=== PATIENT | female | born 1975 | race Caucasian/White ===

== ENCOUNTER 2017-07-17 18:55 | Emergency (ER) | payer MEDICAID, OTHER ==
[~2017-07-17] VITALS: Ht 154.9 cm; Wt 81.8 kg
[~2017-07-17 18:55] MED LIST: VIST50 PO
[2017-07-17 22:43] VITALS: BP 144/98
== END 2017-07-17 22:47 | disposition home or self-care (01) ==
LOC: EMS 18:56
DX: F41.9 Anxiety disorder, unspecified (principal); R20.0 Anesthesia of skin
CPT/HCPCS: 99281

== ENCOUNTER 2018-03-13 03:47 | Emergency (ER) | payer OTHER ==
[~2018-03-13] VITALS: Ht 160 cm; Wt 81.8 kg
[~2018-03-13 03:47] MED LIST changes: +HYDR50CA10 PO; -VIST50 PO
[2018-03-13] MEDS ORDERED: KETOROLAC TROMETHAMINE 30 MG/ML VIAL IM ONE (04:30)
[2018-03-13 04:44] LABS: EOSINOPHILS % (AUTO) 2.3 % (1.0-6.0); HEMATOCRIT 43.2 % (36-46); LYMPHOCYTES # (AUTO) 2.6 K/uL (1.0-4.8); LYMPHOCYTES % (AUTO) 32.1 % (22.0-44.0); MEAN CORPUSCULAR HEMOGLOBIN 29.8 pg (26.0-34.0); MEAN CORPUSCULAR HGB CONC 34.7 G/dL (31.0-37.0); MEAN CORPUSCULAR VOLUME 86 fL (80-100); MONOCYTES # (AUTO) 0.6 K/uL (0.1-1.0); MONOCYTES % (AUTO) 7.1 % (2.0-9.0); NEUTROPHILS # (AUTO) 4.6 K/uL (1.8-7.7); NEUTROPHILS % (AUTO) 57.5 % (40.0-70.0); PLATELET COUNT (AUTO) 259 K/uL (150-450); RED BLOOD CELL COUNT(AUTO) 5.03 MIL/uL (4.00-5.20); RED CELL DISTRIBUTION WIDTH 12.8 % (11.5-14.5)
[2018-03-13 04:55] LABS: ANION GAP 10 mmol/L (8-16); CARBON DIOXIDE 25 mmol/L (22-29); CHLORIDE 104 mmol/L (98-107); CREATININE 0.66 mg/dL (0.60-1.30); GLOMERULAR FILTR. RATE CALC > 60 mL/min (>60); GLUCOSE,RANDOM 131 mg/dL (70-110); POTASSIUM 4.1 mmol/L (3.5-5.1); SODIUM SERUM 139 mmol/L (136-145); UREA NITROGEN, BLOOD 10 mg/dL (7-18)
[2018-03-13 04:59] LABS: ALANINE AMINOTRANSFERASE 56 U/L (12-78); ALBUMIN 3.8 g/dL (3.4-5.0); ALKALINE PHOSPHATASE 62 U/L (46-116); ASPARTATE AMINOTRANSFERASE 30 U/L (15-37); BILIRUBIN,TOTAL 0.5 mg/dL (0.1-1.0); TOTAL PROTEIN, SERUM 7.3 g/dL (6.4-8.2)
[2018-03-13 05:07] LABS: APPEARANCE,URINE CLEAR (CLEAR); BILIRUBIN,URINE NEGATIVE (NEGATIVE); GLUCOSE, URINE (UA) NEGATIVE (NEGATIVE); KETONES,URINE NEGATIVE (NEGATIVE); LEUKOCYTE ESTERASE ,URINE NEGATIVE (NEGATIVE); NITRATE,URINE NEGATIVE (NEGATIVE); OCCULT BLOOD,URINE NEGATIVE (NEGATIVE); PROTEIN,URINE NEGATIVE (NEGATIVE); UROBILINOGEN,URINE 0.2 mg/dL (<=1.0)
[2018-03-13 05:30] VITALS: BP 142/92
== END 2018-03-13 05:49 | disposition home or self-care (01) ==
LOC: EMS 03:48
DX: R10.32 Left lower quadrant pain (principal); F41.9 Anxiety disorder, unspecified
CPT/HCPCS: 36415; 80053; 81003; 84703; 85025; 96372; 99284; J1885

== ENCOUNTER 2018-03-18 22:38 | Emergency (ER) | payer OTHER | END 2018-03-18 23:04 | disposition left against medical advice (07) | LOC: EMS 22:40 | DX: R42 Dizziness and giddiness (principal); Z53.21 Procedure and treatment not carried out due to patient leaving prior to being seen by health care provider ==

== ENCOUNTER 2018-03-25 10:27 | Emergency (ER) | payer OTHER ==
[~2018-03-25] VITALS: Ht 157.5 cm; Wt 85.0 kg
[2018-03-25] MEDS ORDERED: DiphenhydrAMINE HCL 50 MG/ML VIAL IVP ONE (11:15)
[2018-03-25] MEDS ORDERED: METOCLOPRAMIDE HCL 5 MG/ML 2 ML VIAL IVP ONE (11:15)
[2018-03-25] MEDS ORDERED: SODIUM CHLORIDE 0.9% 1,000 ML IV ONE (11:15)
[2018-03-25] MEDS ORDERED: KETOROLAC TROMETHAMINE 30 MG/ML VIAL IVP ONE (11:15)
[2018-03-25 11:46] LABS: BASOPHILS % (AUTO) 0.9 % (0.0-2.0); EOSINOPHILS % (AUTO) 1.5 % (1.0-6.0); HEMATOCRIT 42.7 % (36-46); HEMOGLOBIN 14.7 g/dL (12.0-16.0); LYMPHOCYTES # (AUTO) 1.8 K/uL (1.0-4.8); LYMPHOCYTES % (AUTO) 28.9 % (22.0-44.0); MEAN CORPUSCULAR HEMOGLOBIN 29.9 pg (26.0-34.0); MEAN CORPUSCULAR HGB CONC 34.5 G/dL (31.0-37.0); MEAN CORPUSCULAR VOLUME 87 fL (80-100); MONOCYTES # (AUTO) 0.4 K/uL (0.1-1.0); MONOCYTES % (AUTO) 6.9 % (2.0-9.0); NEUTROPHILS # (AUTO) 3.8 K/uL (1.8-7.7); NEUTROPHILS % (AUTO) 61.8 % (40.0-70.0); PLATELET COUNT (AUTO) 244 K/uL (150-450); RED BLOOD CELL COUNT(AUTO) 4.93 MIL/uL (4.00-5.20); RED CELL DISTRIBUTION WIDTH 12.8 % (11.5-14.5)
[2018-03-25 11:59] LABS: ANION GAP 9 mmol/L (8-16); CALCIUM, TOTAL 9.2 mg/dL (8.8-10.5); CARBON DIOXIDE 27 mmol/L (22-29); CHLORIDE 105 mmol/L (98-107); CREATININE 0.77 mg/dL (0.60-1.30); GLOMERULAR FILTR. RATE CALC > 60 mL/min (>60); GLUCOSE,RANDOM 100 mg/dL (70-110); SODIUM SERUM 141 mmol/L (136-145); UREA NITROGEN, BLOOD 12 mg/dL (7-18)
[2018-03-25 13:20] VITALS: BP 110/69
== END 2018-03-25 13:21 | disposition home or self-care (01) ==
LOC: EMS 10:28
DX: R51 Headache (principal); R42 Dizziness and giddiness; F41.9 Anxiety disorder, unspecified; Z90.710 Acquired absence of both cervix and uterus
CPT/HCPCS: 36415; 70450; 80048; 84703; 85025; 96361; 96374; 96375; 99285; J1200; J1885; J2765; J7030

== ENCOUNTER 2019-01-10 09:16 | Emergency (ER) | payer OTHER ==
[~2019-01-10] VITALS: Ht 162.6 cm; Wt 72.7 kg
[2019-01-10 10:35] LABS: BASOPHILS % (AUTO) 0.9 % (0.0-2.0); EOSINOPHILS % (AUTO) 0.9 % (1.0-6.0); HEMATOCRIT 39.7 % (36-46); HEMOGLOBIN 13.4 g/dL (12.0-16.0); LYMPHOCYTES # (AUTO) 1.5 K/uL (1.0-4.8); LYMPHOCYTES % (AUTO) 19.5 % (22.0-44.0); MEAN CORPUSCULAR HEMOGLOBIN 29.3 pg (26.0-34.0); MEAN CORPUSCULAR HGB CONC 33.7 G/dL (31.0-37.0); MEAN CORPUSCULAR VOLUME 87 fL (80-100); MONOCYTES # (AUTO) 0.5 K/uL (0.1-1.0); MONOCYTES % (AUTO) 6.9 % (2.0-9.0); NEUTROPHILS # (AUTO) 5.5 K/uL (1.8-7.7); NEUTROPHILS % (AUTO) 71.8 % (40.0-70.0); PLATELET COUNT (AUTO) 264 K/uL (150-450); RED BLOOD CELL COUNT(AUTO) 4.56 MIL/uL (4.00-5.20); RED CELL DISTRIBUTION WIDTH 12.8 % (11.5-14.5)
[2019-01-10 10:43] LABS: ANION GAP 10 mmol/L (8-16); CALCIUM, TOTAL 8.8 mg/dL (8.8-10.5); CARBON DIOXIDE 25 mmol/L (22-29); CHLORIDE 105 mmol/L (98-107); CREATININE 0.64 mg/dL (0.60-1.30); GLOMERULAR FILTR. RATE CALC > 60 mL/min (>60); GLUCOSE,RANDOM 109 mg/dL (70-110); POTASSIUM 3.7 mmol/L (3.5-5.1); SODIUM SERUM 140 mmol/L (136-145); UREA NITROGEN, BLOOD 16 mg/dL (7-18)
[2019-01-10 10:49] LABS: ALANINE AMINOTRANSFERASE 21 U/L (12-78); ALBUMIN 3.8 g/dL (3.4-5.0); ALKALINE PHOSPHATASE 53 U/L (46-116); ASPARTATE AMINOTRANSFERASE 16 U/L (15-37); BILIRUBIN,TOTAL 0.6 mg/dL (0.1-1.0); LIPASE 256 U/L (73-393)
[2019-01-10 12:10] LABS: APPEARANCE,URINE CLOUDY (CLEAR); BILIRUBIN,URINE NEGATIVE (NEGATIVE); GLUCOSE, URINE (UA) NEGATIVE (NEGATIVE); KETONES,URINE NEGATIVE (NEGATIVE); LEUKOCYTE ESTERASE ,URINE NEGATIVE (NEGATIVE); NITRATE,URINE NEGATIVE (NEGATIVE); OCCULT BLOOD,URINE NEGATIVE (NEGATIVE); PH,URINE 7.5 (5.0-8.0); PROTEIN,URINE NEGATIVE (NEGATIVE)
[2019-01-10 12:20] LABS: BACTERIA,URINE Rare /HPF (None Seen); RBC,URINE None Seen /HPF (0-2); SQUAMOUS EPITHELIAL CELL,UR Few /LPF (None Seen); WBC,URINE 0-2 /HPF (0-5)
[2019-01-10 12:50] VITALS: BP 147/80
== END 2019-01-10 12:58 | disposition home or self-care (01) ==
LOC: EMS 09:18
DX: R10.30 Lower abdominal pain, unspecified (principal); F41.9 Anxiety disorder, unspecified

== ENCOUNTER 2021-07-10 10:49 | Emergency (ER) | payer MEDICAID, OTHER ==
[~2021-07-10] VITALS: Ht 154.9 cm; Wt 79.1 kg
[2021-07-10] MEDS ORDERED: SODIUM CHLORIDE 0.9% 1,000 ML IV ONE (13:15)
[2021-07-10] MEDS ORDERED: DiphenhydrAMINE HCL 50 MG/ML VIAL IVP ONE (13:15)
[2021-07-10] MEDS ORDERED: KETOROLAC TROMETHAMINE 30 MG/ML VIAL IVP ONE (13:15)
[2021-07-10] MEDS ORDERED: METOCLOPRAMIDE HCL 5 MG/ML 2 ML VIAL IVP ONE (13:15)
[2021-07-10 13:30] LABS: BASOPHILS % (AUTO) 1.2 % (0.0-2.0); HEMATOCRIT 41.9 % (36-46); HEMOGLOBIN 14.6 g/dL (12.0-16.0); LYMPHOCYTES # (AUTO) 2.4 K/uL (1.0-4.8); LYMPHOCYTES % (AUTO) 38.5 % (22.0-44.0); MEAN CORPUSCULAR HEMOGLOBIN 29.5 pg (26.0-34.0); MEAN CORPUSCULAR HGB CONC 34.9 G/dL (31.0-37.0); MEAN CORPUSCULAR VOLUME 85 fL (80-100); MONOCYTES # (AUTO) 0.7 K/uL (0.1-1.0); MONOCYTES % (AUTO) 10.6 % (2.0-9.0); NEUTROPHILS % (AUTO) 46.7 % (40.0-70.0); PLATELET COUNT (AUTO) 275 K/uL (150-450); RED BLOOD CELL COUNT(AUTO) 4.95 MIL/uL (4.00-5.20); RED CELL DISTRIBUTION WIDTH 13.3 % (11.5-14.5)
[2021-07-10 13:40] LABS: ANION GAP 4 mmol/L (8-16); CARBON DIOXIDE 30 mmol/L (22-29); CHLORIDE 105 mmol/L (98-107); CREATININE 0.56 mg/dL (0.60-1.30); GLUCOSE,RANDOM 94 mg/dL (70-110); SODIUM SERUM 139 mmol/L (136-145); UREA NITROGEN, BLOOD 17 mg/dL (7-18)
[2021-07-10 13:41] LABS: GLOMERULAR FILTR. RATE CALC > 60 mL/min (>60)
[2021-07-10 13:42] VITALS: BP 140/80
== END 2021-07-10 14:58 | disposition home or self-care (01) ==
LOC: EMS 11:07
DX: R51.9 Headache, unspecified (principal); F41.9 Anxiety disorder, unspecified
CPT/HCPCS: 36415; 80048; 85025; 96361; 96374; 96375; 99284; J1200; J1885; J2765; J7030

== ENCOUNTER 2022-06-03 12:16 | Emergency (ER) | payer MEDICAID, OTHER ==
[~2022-06-03] VITALS: Ht 162.6 cm; Wt 86.4 kg
[2022-06-03 12:25] VITALS: BP 139/79
[2022-06-03] MEDS ORDERED: BACLOFEN 10 MG TABLET PO ONE (14:15)
[2022-06-03] MEDS ORDERED: LIDOCAINE 5% TRANSDERMAL PATCH TD ONE (14:15)
[2022-06-03] MEDS ORDERED: BACL10TA PO (15:53)
[2022-06-03] MEDS ORDERED: LIDO700A15 TP (15:54)
[2022-06-03] MEDS ORDERED: IBUP-2070 PO (15:54)
== END 2022-06-03 16:07 | disposition home or self-care (01) ==
LOC: EMS 12:17
DX: M54.50 Low back pain, unspecified (principal); E11.9 Type 2 diabetes mellitus without complications; Z90.710 Acquired absence of both cervix and uterus
CPT/HCPCS: 72100; 82962; 99283

== ENCOUNTER 2022-06-25 12:39 | Emergency (ER) | payer OTHER ==
[~2022-06-25] VITALS: Ht 167.6 cm; Wt 90.9 kg
[~2022-06-25 12:39] MED LIST changes: +BACL10TA PO; -HYDR50CA10 PO; +IBUP-2070 PO; +LIDO700A15 TP
[2022-06-25] MEDS ORDERED: SITA25 PO (12:44)
[2022-06-25] MEDS ORDERED: SITA50 PO (13:56)
[2022-06-25] MEDS ORDERED: GABA-529 PO (13:56)
[2022-06-25] MEDS ORDERED: MELO-106 PO (13:56)
[2022-06-25] MEDS ORDERED: DEXAMETHASONE SOD PHOS 4 MG/ML 5 ML VIAL IM ONE (14:45)
[2022-06-25] MEDS ORDERED: KETOROLAC TROMETHAMINE 30 MG/ML VIAL IM ONE (14:45)
[2022-06-25 15:36] VITALS: BP 148/80
== END 2022-06-25 15:37 | disposition home or self-care (01) ==
LOC: EMS 12:54
DX: M54.32 Sciatica, left side (principal); E11.9 Type 2 diabetes mellitus without complications; Z90.710 Acquired absence of both cervix and uterus
CPT/HCPCS: 99284; 82962; 96372; J1100; J1885

== ENCOUNTER 2022-07-24 00:20 | Emergency (ER) | payer OTHER ==
[~2022-07-24] VITALS: Ht 157.5 cm; Wt 81.8 kg
[~2022-07-24 00:20] MED LIST changes: +GABA-529 PO; +IBUP-1492 PO; -IBUP-2070 PO; +MELO-106 PO; +SITA50 PO
[2022-07-24] MEDS ORDERED: KETOROLAC TROMETHAMINE 60 MG/2 ML VIAL IM ONE (01:30)
[2022-07-24] MEDS ORDERED: LIDOCAINE 5% TRANSDERMAL PATCH TD ONE (01:30)
[2022-07-24] MEDS ORDERED: DEXAMETHASONE SOD PHOS 4 MG/ML 5 ML VIAL IM ONE (01:30)
[2022-07-24] MEDS ORDERED: HYDR-4723 PO (01:48)
[2022-07-24] MEDS ORDERED: KETO10TA2 PO (01:48)
[2022-07-24] MEDS ORDERED: LIDO700A15 TP (01:48)
[2022-07-24] MEDS ORDERED: METH-812 PO (01:48)
[2022-07-24 02:13] VITALS: BP 140/95
== END 2022-07-24 02:05 | disposition home or self-care (01) ==
LOC: EMS 00:22
DX: G89.29 Other chronic pain (principal); M54.42 Lumbago with sciatica, left side; E11.9 Type 2 diabetes mellitus without complications; Z90.710 Acquired absence of both cervix and uterus
CPT/HCPCS: 99284; 82962; 96372; J1100; J1885

== ENCOUNTER 2022-10-12 16:58 | Emergency (ER) | payer OTHER ==
[~2022-10-12] VITALS: Ht 154.9 cm; Wt 82.0 kg
[~2022-10-12 16:58] MED LIST changes: +HYDR-4723 PO; +KETO10TA2 PO; +METH-812 PO
[2022-10-12] MEDS ORDERED: ACET-2080 PO (17:07)
[2022-10-12] MEDS ORDERED: IBUPROFEN 600 MG TABLET PO ONE (18:00)
[2022-10-12] MEDS ORDERED: ACETAMINOPHEN 500 MG TABLET PO ONE (18:00)
[2022-10-12 18:02] LABS: BASOPHILS % (AUTO) 0.9 % (0.0-2.0); EOSINOPHILS % (AUTO) 2.8 % (1.0-6.0); HEMATOCRIT 43.6 % (36-46); HEMOGLOBIN 14.6 g/dL (12.0-16.0); LYMPHOCYTES # (AUTO) 2.7 K/uL (1.0-4.8); LYMPHOCYTES % (AUTO) 38.1 % (22.0-44.0); MEAN CORPUSCULAR HEMOGLOBIN 29.2 pg (26.0-34.0); MEAN CORPUSCULAR HGB CONC 33.5 G/dL (31.0-37.0); MEAN CORPUSCULAR VOLUME 87 fL (80-100); MONOCYTES # (AUTO) 0.5 K/uL (0.1-1.0); MONOCYTES % (AUTO) 7.1 % (2.0-9.0); NEUTROPHILS # (AUTO) 3.7 K/uL (1.8-7.7); NEUTROPHILS % (AUTO) 51.1 % (40.0-70.0); PLATELET COUNT (AUTO) 250 K/uL (150-450); RED CELL DISTRIBUTION WIDTH 12.5 % (11.5-14.5)
[2022-10-12 18:18] LABS: ANION GAP 6 mmol/L (8-16); CALCIUM, TOTAL 9.6 mg/dL (8.8-10.5); CARBON DIOXIDE 27 mmol/L (22-29); CHLORIDE 103 mmol/L (98-107); CREATININE 0.83 mg/dL (0.60-1.30); GLOMERULAR FILTR. RATE CALC > 60 mL/min (>60); GLUCOSE,RANDOM 109 mg/dL (70-110); POTASSIUM 3.6 mmol/L (3.5-5.1); SODIUM SERUM 136 mmol/L (136-145); UREA NITROGEN, BLOOD 16 mg/dL (7-18)
[2022-10-12 18:25] LABS: ALANINE AMINOTRANSFERASE 36 U/L (12-78); ALBUMIN 4.4 g/dL (3.4-5.0); ALKALINE PHOSPHATASE 66 U/L (46-116); ASPARTATE AMINOTRANSFERASE 28 U/L (15-37); BILIRUBIN,TOTAL 0.6 mg/dL (0.1-1.0); CREATINE KINASE, TOTAL ONLY 130 U/L (26-192); TOTAL PROTEIN, SERUM 7.9 g/dL (6.4-8.2)
[2022-10-12 18:31] LABS: B-TYPE NATRIURETIC PEPTIDE < 5 pg/mL (0-100)
[2022-10-12 19:37] VITALS: BP 146/90
== END 2022-10-12 21:02 | disposition home or self-care (01) ==
LOC: EMS 17:07
DX: R51.9 Headache, unspecified (principal); E11.9 Type 2 diabetes mellitus without complications; Z90.710 Acquired absence of both cervix and uterus
CPT/HCPCS: 70450; 80053; 82550; 82962; 83880; 84484; 84703; 85025; 93005; 99285

== ENCOUNTER 2022-12-05 22:29 | Emergency (ER) | payer OTHER ==
[~2022-12-05] VITALS: Ht 154.9 cm; Wt 95.0 kg
[~2022-12-05 22:29] MED LIST changes: +ACET-2080 PO; -BACL10TA PO; -GABA-529 PO; -HYDR-4723 PO; -IBUP-1492 PO; -KETO10TA2 PO; -LIDO700A15 TP; -MELO-106 PO; -METH-812 PO
[2022-12-05] MEDS ORDERED: ONDANSETRON HCL 4 MG/2 ML VIAL IVP ONE (23:00)
[2022-12-05] MEDS ORDERED: SODIUM CHLORIDE 0.9% 1,000 ML IV ONE (23:00)
[2022-12-05 23:11] LABS: GLUCOMETER DEV NAME(LOC) ERT.5; GLUCOSE,POINT OF CARE 165 MG/DL (70-110)
[2022-12-05 23:26] LABS: BASOPHILS % (AUTO) 0.7 % (0.0-2.0); HEMATOCRIT 38.3 % (36-46); HEMOGLOBIN 12.9 g/dL (12.0-16.0); LYMPHOCYTES # (AUTO) 2.9 K/uL (1.0-4.8); LYMPHOCYTES % (AUTO) 33.6 % (22.0-44.0); MEAN CORPUSCULAR HEMOGLOBIN 28.9 pg (26.0-34.0); MEAN CORPUSCULAR HGB CONC 33.6 G/dL (31.0-37.0); MEAN CORPUSCULAR VOLUME 86 fL (80-100); MONOCYTES # (AUTO) 0.8 K/uL (0.1-1.0); MONOCYTES % (AUTO) 8.8 % (2.0-9.0); NEUTROPHILS # (AUTO) 4.8 K/uL (1.8-7.7); NEUTROPHILS % (AUTO) 54.9 % (40.0-70.0); PLATELET COUNT (AUTO) 233 K/uL (150-450); RED BLOOD CELL COUNT(AUTO) 4.45 MIL/uL (4.00-5.20); RED CELL DISTRIBUTION WIDTH 12.6 % (11.5-14.5)
[2022-12-05 23:31] LABS: ANION GAP 5 mmol/L (8-16); CALCIUM, TOTAL 8.9 mg/dL (8.8-10.5); CARBON DIOXIDE 30 mmol/L (22-29); CHLORIDE 102 mmol/L (98-107); CREATININE 0.84 mg/dL (0.60-1.30); GLOMERULAR FILTR. RATE CALC > 60 mL/min (>60); GLUCOSE,RANDOM 166 mg/dL (70-110); POTASSIUM 4.3 mmol/L (3.5-5.1); SODIUM SERUM 137 mmol/L (136-145); UREA NITROGEN, BLOOD 21 mg/dL (7-18)
[2022-12-05 23:38] LABS: ALANINE AMINOTRANSFERASE 25 U/L (12-78); ALBUMIN 3.6 g/dL (3.4-5.0); ALKALINE PHOSPHATASE 58 U/L (46-116); ASPARTATE AMINOTRANSFERASE 17 U/L (15-37); BILIRUBIN,TOTAL 0.6 mg/dL (0.1-1.0); TOTAL PROTEIN, SERUM 6.9 g/dL (6.4-8.2)
[2022-12-06] MEDS ORDERED: ONDA-104 PO (00:57)
[2022-12-06] MEDS ORDERED: IBUP-1554 PO (00:57)
[2022-12-06 01:00] VITALS: BP 132/71
== END 2022-12-06 01:00 | disposition home or self-care (01) ==
LOC: EMS 22:32
DX: R51.9 Headache, unspecified (principal); E11.9 Type 2 diabetes mellitus without complications; Z90.710 Acquired absence of both cervix and uterus
CPT/HCPCS: 99283; 80053; 82962; 84703; 85025; 36415; 96374; 96361; J2405; J7030

== ENCOUNTER 2023-02-28 11:53 | Emergency (ER) | payer OTHER ==
[~2023-02-28] VITALS: Ht 157.5 cm; Wt 89.0 kg
[2023-02-28 11:53] VITALS: TEMP 98.3
[~2023-02-28 11:53] MED LIST changes: +IBUP-1554 PO; +ONDA-104 PO
[2023-02-28] MEDS ORDERED: METO-558 PO (11:57)
[2023-02-28 13:03] LABS: BASOPHILS % (AUTO) 0.5 % (0.0-2.0); EOSINOPHILS % (AUTO) 1.7 % (1.0-6.0); HEMOGLOBIN 14.4 g/dL (12.0-16.0); LYMPHOCYTES # (AUTO) 1.8 K/uL (1.0-4.8); LYMPHOCYTES % (AUTO) 37.6 % (22.0-44.0); MEAN CORPUSCULAR HEMOGLOBIN 29.8 pg (26.0-34.0); MEAN CORPUSCULAR HGB CONC 35.2 G/dL (31.0-37.0); MEAN CORPUSCULAR VOLUME 85 fL (80-100); MONOCYTES # (AUTO) 0.4 K/uL (0.1-1.0); MONOCYTES % (AUTO) 8.6 % (2.0-9.0); NEUTROPHILS # (AUTO) 2.5 K/uL (1.8-7.7); NEUTROPHILS % (AUTO) 51.6 % (40.0-70.0); PLATELET COUNT (AUTO) 222 K/uL (150-450); RED BLOOD CELL COUNT(AUTO) 4.85 MIL/uL (4.00-5.20); RED CELL DISTRIBUTION WIDTH 12.7 % (11.5-14.5)
[2023-02-28 13:17] LABS: ANION GAP 10 mmol/L (8-16); CALCIUM, TOTAL 8.9 mg/dL (8.8-10.5); CARBON DIOXIDE 26 mmol/L (22-29); CHLORIDE 102 mmol/L (98-107); CREATININE 0.65 mg/dL (0.60-1.30); GLOMERULAR FILTR. RATE CALC > 60 mL/min (>60); GLUCOSE,RANDOM 235 mg/dL (70-110); POTASSIUM 4.2 mmol/L (3.5-5.1); SODIUM SERUM 138 mmol/L (136-145)
[2023-02-28 13:22] LABS: ALANINE AMINOTRANSFERASE 49 U/L (12-78); ALBUMIN 3.7 g/dL (3.4-5.0); ALKALINE PHOSPHATASE 60 U/L (46-116); ASPARTATE AMINOTRANSFERASE 37 U/L (15-37); BILIRUBIN,TOTAL 0.6 mg/dL (0.1-1.0); TOTAL PROTEIN, SERUM 7.5 g/dL (6.4-8.2)
[2023-02-28] MEDS ORDERED: HYDROCODONE/ACETAMINOPHEN 5-325 MG TABLET PO ONE (15:15)
[2023-02-28] MEDS ORDERED: KETOROLAC TROMETHAMINE 60 MG/2 ML VIAL IM ONE (15:15)
[2023-02-28] MEDS ORDERED: BACLOFEN 10 MG TABLET PO ONE (15:15)
[2023-02-28 15:49] VITALS: BP 149/84; PULSE 82; RESP 16
[2023-02-28] MEDS ORDERED: ACET-66 PO (15:54)
[2023-02-28] MEDS ORDERED: IBUP-1554 PO (15:54)
== END 2023-02-28 16:03 | disposition home or self-care (01) ==
LOC: EMS 11:55
DX: G44.209 Tension-type headache, unspecified, not intractable (principal); E11.65 Type 2 diabetes mellitus with hyperglycemia; I10 Essential (primary) hypertension; Z90.710 Acquired absence of both cervix and uterus
CPT/HCPCS: 99284; 80053; 82962; 84484; 84703; 85025; 36415; 93005; 96372; J1885

== ENCOUNTER 2025-07-05 20:12 | Emergency (ER) | payer OTHER ==
[~2025-07-05] VITALS: Ht 167.6 cm; Wt 69.5 kg
[~2025-07-05 20:12] MED LIST changes: -ACET-2080 PO; +ACET-66 PO; +METO-325 PO; -ONDA-104 PO
[2025-07-05 20:59] LABS: APPEARANCE,URINE CLEAR (CLEAR); GLUCOSE, URINE (UA) >=1000 mg/dL (NEGATIVE); LEUKOCYTE ESTERASE ,URINE NEGATIVE (NEGATIVE); NITRATE,URINE NEGATIVE (NEGATIVE); OCCULT BLOOD,URINE NEGATIVE (NEGATIVE); SPECIFIC GRAVITIY, URINE 1.048 (1.003-1.030)
[2025-07-05 21:08] LABS: PLATELET COUNT (AUTO) 227 K/uL (150-450); RED BLOOD CELL COUNT(AUTO) 5.78 MIL/uL (4.00-5.20); RED CELL DISTRIBUTION WIDTH 12.7 % (11.5-14.5); WHITE BLOOD COUNT (AUTO) 18.6 K/uL (4.5-11.0)
[2025-07-05 21:14] LABS: SQUAMOUS EPITHELIAL CELL,UR Few /LPF (None Seen)
[2025-07-05 21:18] LABS: CALCIUM, TOTAL 9.4 mg/dL (8.8-10.5); CREATININE 0.67 mg/dL (0.60-1.30); GLOMERULAR FILTR. RATE CALC > 60 mL/min (>60); GLUCOSE,RANDOM 226 mg/dL (70-110); SODIUM SERUM 139 mmol/L (136-145); UREA NITROGEN, BLOOD 21 mg/dL (7-18)
[2025-07-05 21:24] LABS: ASPARTATE AMINOTRANSFERASE 20.0 U/L (15-37); TOTAL PROTEIN, SERUM 7.9 g/dL (6.4-8.2)
[2025-07-05 21:25] LABS: RBC MORPHOLOGY COMMENT NORMAL RBC MORPH
[2025-07-05 21:35] LABS: TROPONIN I-HIGH SENSITIVITY Less Than 4 ng/L (<51)
[2025-07-05] MEDS ORDERED: 0.9% SODIUM CHLORIDE 10 ML SYRINGE IVP PRN (22:30)
[2025-07-05] MEDS: SODIUM CHLORIDE 0.9% 1,900 ML IV ONE (22:42)
[2025-07-05] MEDS: ACETAMINOPHEN 500 MG TABLET PO ONE (22:46)
[2025-07-05 22:48] LABS: COVID AG,FIA SOURCE NASAL SWAB
[2025-07-05 23:06] LABS: LACTIC ACID 1.3 mmol/L (0.4-2.0)
[2025-07-05 23:10] LABS: INFLUENZA TYPE A NEGATIVE FOR TYPE A (NEGATIVE); INFLUENZA TYPE B NEGATIVE FOR TYPE B (NEGATIVE); SARS-COV2 (COVID) ANTIGEN,FIA Negative (Negative)
[2025-07-05 23:31] LABS: GLUCOMETER DEV NAME(LOC) ER.7; GLUCOSE,POINT OF CARE 209 MG/DL (70-110)
[2025-07-05] MEDS: MAG HYDROX/ALUMINUM HYD/SIMETH 30 ML SUSPENSION UDCUP PO ONE (23:46)
[2025-07-06] MEDS ORDERED: ONDA-104 PO (00:13)
[2025-07-06 00:27] VITALS: BP 125/75; PULSE 98; RESP 18; TEMP 98.5; O2SAT 96
== END 2025-07-06 00:37 | disposition home or self-care (01) ==
LOC: EMS 20:12 → EDH 23:29 → UNDOADMIN 23:29
DX: K52.9 Noninfective gastroenteritis and colitis, unspecified (principal); Z98.890 Other specified postprocedural states; E11.9 Type 2 diabetes mellitus without complications; I10 Essential (primary) hypertension; Z79.899 Other long term (current) drug therapy; Z20.822 Contact with and (suspected) exposure to COVID-19
CPT/HCPCS: 71045; 80048; 80076; 81001; 82962; 83605; 83690; 84145; 84484; 85025; 87040; 87804; 93005; 96360; 96361; 99285; G0378; 36415-L1; 36415-TC